=== PATIENT | female | born 1960 | race Asian ===

== ENCOUNTER → 2016-07-29 | Outpatient (CLI) | payer BC | LOC: CIMAGING 15:07 | PROVIDERS: ATTEND Family Medicine | DX: R06.02 Shortness of breath (principal); J45.901 Unspecified asthma with (acute) exacerbation | CPT/HCPCS: 71020-PO ==

== ENCOUNTER → 2017-10-13 | Outpatient (CLI) | payer OTHER, BC | LOC: CIMAGING 15:18 | PROVIDERS: ATTEND Family Medicine | DX: S92.534A Nondisplaced fracture of distal phalanx of right lesser toe(s), initial encounter for closed fracture (principal) | CPT/HCPCS: 73630-PO ==